=== PATIENT | female | born 1985 | race African-American/Black ===

== ENCOUNTER 2018-08-19 05:38 | Emergency (ER) | payer SELFPAY ==
[~2018-08-19] VITALS: Ht 152.4 cm; Wt 46.3 kg
[2018-08-19 05:45] VITALS: BP 135/73
[2018-08-19] MEDS ORDERED: NAPR-514 PO (05:51)
[2018-08-19] MEDS ORDERED: PENI500T PO (05:51)
--- NOTE | 2018-08-19 05:51 | PHYS DOC ---
Past Medical History Past Medical History: TB Additional Past Medical Histor: Pt reports having TB 2 years ago. Past Surgical History: No Surgical History Alcohol Use: Occasionally Drug Use: Marijuana Adult General Chief Complaint Chief Complaint: DENTAL PROBLEM HPI HPI 32-year-old female presents with a toothache. She states it been going on for a couple of days. She states she was at a work orientation last night it really started hurting. She denies any facial redness but she does state that she feels like her jaw is swollen.[] Review of Systems Review of Systems Constitutional: Denies fever or chills [] Eyes: Denies change in visual acuity, redness, or eye pain [] HENT: Per history of present illness[] [] All other systems were reviewed and found to be within normal limits, except as documented in this note. Allergies Allergies Allergies Coded Allergies Type Severity Reaction Last Updated Verified No Known Drug Allergies 10/15/13 No Physical Exam Physical Exam Constitutional: Well developed, well nourished, no acute distress, non-toxic appearance. [] HENT: Dental caries minimal surrounding gingival erythema and no abscess. [] Eyes: PERRLA, EOMI, conjunctiva normal, no discharge. [] Neck: Normal range of motion, no tenderness, supple, no stridor. [] Cardiovascular:Heart rate regular rhythm, no murmur [] Lungs & Thorax: Bilateral breath sounds clear to auscultation [] Abdomen: Bowel sounds normal, soft, no tenderness, no masses, no pulsatile masses. [] Skin: Warm, dry, no erythema, no rash. [] [] Psychologic: Anxious. [] EKG EKG [] Radiology/Procedures Radiology/Procedures [] Course & Med Decision Making Course & Med Decision Making Pertinent Labs and Imaging studies reviewed. (See chart for details) [] Dragon Disclaimer Dragon Disclaimer This electronic medical record was generated, in whole or in part, using a voice recognition dictation system. Departure Departure Impression: Primary Impression: Pain due to dental caries Disposition: HOME, SELF-CARE Condition: STABLE Referrals: NO PCP (PCP) Patient Instructions: Dental Caries, Dental Pain Additional Instructions: Follow with a dentist this week. Scripts Naproxen (NAPROXEN) 500 Mg Tablet 1 TAB PO BID PRN for PAIN, #30 TAB 1 Refill Prov: JIHAN GUO DO 08/19/18 Penicillin V Potassium (PENICILLIN V POTASSIUM) 500 Mg Tablet 1 TAB PO QID, #40 TAB Prov: JIHAN GUO DO 08/19/18 JIHAN GUO DO Aug 19, 2018 05:51
== END 2018-08-19 05:56 | disposition home or self-care (01) ==
LOC: ER 05:38
DX: K02.9 Dental caries, unspecified (principal)
CPT/HCPCS: 99283